=== PATIENT | male | born 1940 | race Caucasian/White ===

== ENCOUNTER 2021-05-11 21:24 | Emergency (ER) | payer MEDICARE ==
[2021-05-11 21:59] LABS: #Basophils 0.1 thou/uL (0.0-0.2); #Eosinphils 0.2 thou/uL (0.0-0.7); #Lymphocytes 1.1 thou/uL (1.20-3.40); #Monocytes 0.7 thou/uL (0.11-0.59); #Neutrophils 8.1 thou/uL (1.40-6.50); %Basophils 0.6 % (0.0-1.0); %Eosinophils 1.5 % (0.0-10.0); %Lymphocytes 11.2 % (21.0-51.0); %Monocytes 6.6 % (0.0-10.0); %Neutrophils 80.1 % (42.0-75.0); Hemoglobin 8.5 g/dL (14.0-18.0); Mean Corpuscular HGB CONC 33.7 g/dL (32.0-36.0); Mean Corpuscular Hemoglobin 31.6 pg (27.0-31.0); Mean Corpuscular Volume 93.8 fL (78.0-98.0); Mean Platelet Volume 7.1 fL (7.4-10.4); Platelet Count 151 thou/uL (130-400); RBC Distribution Width 14.3 % (11.5-14.5); Red Blood Cell (RBC) Count 2.69 mill/uL (4.70-6.10); White Blood Cell (WBC) Count 10.1 thou/uL (4.8-10.8)
[2021-05-11 22:14] LABS: ALT (SGPT) 33 U/L (8-55); AST (SGOT) 25 U/L (5-34); Albumin 3.6 g/dL (3.4-4.8); Alkaline Phosphatase 94 U/L (40-110); Anion Gap 16 mmol/L (10-20); BUN (Urea Nitrogen) 47 mg/dL (8.4-25.7); Bilirubin, Total 0.4 mg/dL (0.2-1.2); Calc. Creatinine Clearance 0 mL/min (70-130); Calcium 8.6 mg/dL (7.8-10.44); Carbon Dioxide 21 mmol/L (23-31); Chloride 113 mmol/L (98-107); Globulin 2.8 g/dL (2.4-3.5); Glucose 185 mg/dL (83-110); Potassium 4.5 mmol/L (3.5-5.1); Protein, Total 6.4 g/dL (5.8-8.1); Sodium 145 mmol/L (136-145)
[2021-05-11 22:31] LABS: CKMB 4.2 ng/mL (0-6.6)
[2021-05-11] MEDS ORDERED: Aspirin Chewable 81 MG TAB ONE (23:00)
[2021-05-11] MEDS ORDERED: Furosemide 40 MG/4 ML VIAL ONE (23:00)
[2021-05-11] MEDS ORDERED: Ketorolac Tromethamine 30 MG/ML VIAL ONE (23:53)
[2021-05-11] MEDS ORDERED: cefTRIAXone\\ROCEPHIN 1 GM VIAL ONE (23:53)
[2021-05-11] MEDS ORDERED: Morphine 4 MG/ML VIAL ONE (23:53)
[2021-05-12 01:15] LABS: SARS-CoV-2 NAA Rapid Test Not Detected (NotDetected)
[2021-05-12 09:11] LABS: Troponin I 0.076 ng/mL (< 0.028)
[2021-05-12] MEDS ORDERED: Timolol 0.5% Ophth Soln 5 ml Bottle EA EYE SCH (09:15)
[2021-05-12] MEDS ORDERED: Amlodipine 5 MG TAB PO SCH (09:15)
[2021-05-12] MEDS ORDERED: glipiZIDE 5 MG TAB PO SCH (09:15)
[2021-05-12] MEDS ORDERED: Atenolol 50 MG TAB PO SCH (09:15)
[2021-05-12] MEDS ORDERED: Furosemide 40 MG/4 ML VIAL ONE (09:56)
[2021-05-12] MEDS ORDERED: Atenolol 50 MG TAB ONE (09:56)
[2021-05-12 12:07] LABS: Troponin I 0.074 ng/mL (< 0.028)
== END 2021-05-12 14:25 | disposition short-term general hospital (02) ==
LOC: BURERS 21:24
DX: I13.0 Hypertensive heart and chronic kidney disease with heart failure and stage 1 through stage 4 chronic kidney disease, or unspecified chronic kidney disease (principal); I50.9 Heart failure, unspecified; N18.30 Chronic kidney disease, stage 3 unspecified; E11.22 Type 2 diabetes mellitus with diabetic chronic kidney disease; E78.5 Hyperlipidemia, unspecified; E78.00 Pure hypercholesterolemia, unspecified; Z79.899 Other long term (current) drug therapy; Z20.822 Contact with and (suspected) exposure to COVID-19
CPT/HCPCS: 71045; 80053; 82553; 83880; 84484 ×2; 85025; 93005; 94760; 96374; 96376; 99285; U0002; 36415; J0696; J1885; J1940; J2270

== ENCOUNTER 2022-04-02 16:15 | Emergency (ER) | payer MEDICARE, OTHER ==
[2022-04-02] MEDS ORDERED: Potassium Chloride 20 MEQ TAB ONE (17:09)
[2022-04-02] MEDS ORDERED: Acetaminophen/Codeine 30-300mg Tablet ONE (17:09)
== END 2022-04-02 17:21 | disposition home or self-care (01) ==
LOC: BURERS 16:15
DX: M10.9 Gout, unspecified (principal); E11.9 Type 2 diabetes mellitus without complications; E78.5 Hyperlipidemia, unspecified; E78.00 Pure hypercholesterolemia, unspecified; I10 Essential (primary) hypertension; Z79.899 Other long term (current) drug therapy; Z79.84 Long term (current) use of oral hypoglycemic drugs

== ENCOUNTER 2023-01-15 11:53 | Outpatient (CLI) | payer MEDICARE | END 2023-01-15 11:54 | disposition home or self-care (01) | LOC: BURRAD 11:53 | PROVIDERS: ATTEND Family Medicine | DX: S46.912A Strain of unspecified muscle, fascia and tendon at shoulder and upper arm level, left arm, initial encounter (principal); M25.422 Effusion, left elbow; S52.132A Displaced fracture of neck of left radius, initial encounter for closed fracture ==